=== PATIENT | female | born 1970 | race Caucasian/White ===

== ENCOUNTER 2016-12-02 11:47 | Observation (INO) ==
--- NOTE | 2016-12-02 12:11 | Emergency Department Note ---
Disposition Clinical Impression: Exertional dyspnea Disposition: Admitted As Inpatient Condition: Fair Referrals: NONE,PCP [Primary Care Provider] - Forms: ED Satisfaction Letter Time of Disposition: 14:55 SOB HPI - General Chief Complaint: ED Shortness of Breath/Dyspnea Stated Complaint: SOB/Swelling Time Seen by Provider: 12/02/16 11:56 Source: patient Limitations: no limitations Nursing Notes Reviewed: Yes Vital Signs Reviewed: Yes - History of Present Illness Patient is a 46-year-old female who presents to [facility] ED with a chief complaint of shortness of breath and swelling. States she has been feeling more and more short of breath over this last week. It is worse with exertion. Patient also having worsening swelling. States she has had about a 15 pound weight gain in the last week. No prior heart attacks or congestive heart failure. States she did have a heart catheterization approximately 5 years ago which showed a 40% blockage in one vessel. Her last echocardiogram was also over 5 years ago. Patient denies any nausea, vomiting, chest pain, abdominal pain, problems with urination or bowel movements. Pt Subjective Complaint: shortness of breath Onset (ago): day(s) Context: occurred during exertion Severity: moderate Consistency/Duration: gradually worsening Improves with: rest Worsens with: exertion Associated symptoms: Denies: chest pain, fever, cough, orthopnea, nausea/ vomiting, abdominal pain Treatment prior to arrival: none Cough present: No Sputum Amount: None - Related Data Home oxygen amount: none Home Medications Medication Instructions Recorded Confirmed Amlodipine Besylate [Amlodipine 10 mg PO DAILY 12/02/16 12/02/16 Besylate] Aspirin 81 mg PO DAILY 12/02/16 12/02/16 Escitalopram [Lexapro] 5 mg PO DAILY 12/02/16 12/02/16 Losartan/Hydrochlorothiazide 1 tab PO DAILY 12/02/16 12/02/16 [Losartan-Hctz 100-25 mg Tab] Metoprolol [Lopressor] 25 mg PO BID 12/02/16 12/02/16 Multivitamin [One Daily Essential] 1 tab PO DAILY 12/02/16 12/02/16 Rosuvastatin Calcium [Crestor] 10 mg PO DAILY 12/02/16 12/02/16 Allergies Allergy/AdvReac Type Severity Reaction Status Date / Time No Known Allergies Allergy Verified 12/02/16 11:52 All systems ED: reviewed and negative except as stated. Past Medical History - Past Medical History Attestation: Yes The following information was validated with the patient. Source: patient Medical history: Reports: hypertension, other Psychiatric history: Reports: no psych history - Social History Smoking Status: Current some day smoker Smokeless Tobacco Status: No Alcohol use: Reports: none Drug use: Reports: none Physical Exam - General Limitations: no limitations General appearance: alert, in no apparent distress - Head Head exam: atraumatic, normocephalic, normal inspection - Eye Eye exam: Present: normal appearance, EOMI - ENT ENT exam: normal exam, normal oropharynx, mucous membranes moist - Neck Neck exam: Present: normal inspection, full ROM, trachea midline - Chest Chest inspection: Present: normal inspection, symmetric chest wall rise - Respiratory Respiratory exam: Present: normal lung sounds bilaterally - Cardiovascular Cardiovascular exam: Present: normal rhythm, tachycardia - Abdominal Exam Abdominal exam: Present: soft, Non-Tender. Absent: tenderness, distention, guarding, rebound, rigidity - Extremities Exam Extremities exam: Present: normal inspection, full ROM. Absent: tenderness, pedal edema - Back Exam Back exam: Present: normal inspection, full ROM. Absent: tenderness - Neurological Exam Neurological exam: Present: alert, oriented X3 - Psychiatric Psychiatric exam: Present: normal affect, normal mood - Skin Skin exam: Present: warm, dry, intact, normal color Course Course Narrative: Patient seen and examined. Exertional dyspnea and lower extremity dependent edema. We will do a cardiopulmonary workup as well as dimer level. She is tachycardic though she does have history of positional orthostatic tachycardia. - Reevaluation(s) Reevaluation #1: Dimer level was positive at over 5000. We did a CTA of the chest to rule out pulmonary embolus. This was negative. I discussed results with patient. She states her physician works approximately 3 hours away. With her worsening symptoms, we will go ahead and get her admitted with concern that she needs an echocardiogram. We will give a dose of 40 mg IV Lasix. Discussed with hospitalist Wicho Rivera who has accepted patient for admission. Time: 15:23 Vital Signs Temperature 97.8 F 12/02/16 11:48 Pulse Rate 129 12/02/16 11:48 Respiratory Rate 18 12/02/16 11:48 Blood Pressure 162/92 12/02/16 11:48 O2 Sat by Pulse Oximetry 98 10/28/17 11:48 Temperature 97.8 F 12/02/16 11:48 Pulse Rate 101 12/02/16 15:01 Respiratory Rate 16 12/02/16 14:27 Blood Pressure 135/83 12/02/16 15:01 O2 Sat by Pulse Oximetry 95 12/02/16 15:01 Oxygen Delivery Oxygen Delivery Room Air Shortness of Breath/Dyspnea - Medical Records Medical records reviewed: Yes I reviewed the patient's medical records. - Lab Data Lab results reviewed: Yes I reviewed the patient's lab results. Result diagrams: 12/02/16 12:08 12/02/16 12:08 Lab Results 12/02/16 12/02/16 12/02/16 Range/Units 12:08 12:08 12:08 WBC 9.0 (4.3-11.1) K/mcL RBC 4.69 (3.82-4.97) M/mcL Hgb 15.1 (11.5-15.4) g/dL Hct 42.2 (35.3-44.9) % MCV 90.0 (83.0-100.0) fL MCH 32.2 (28.0-33.3) pg MCHC 35.8 H (31.6-35.5) g/dL RDW 12.9 (11.5-14.5) % Plt Count 189 (140-400) K/mcL MPV 11.1 (9.4-12.4) fL Immature Gran % 0.2 (0-4) % Seg Neutrophils % 54.7 % Lymphocytes % 35.1 % Monocytes % 7.6 % Eosinophils % 1.8 % Basophils % 0.6 % Neutrophils # 4.9 (1.6-8.9) K/mcL Lymphocytes # 3.2 (0.6-4.6) K/mcL Monocytes # 0.7 (0.0-1.3) K/mcL Eosinophils # 0.2 (0.0-0.6) K/mcL Basophils # 0.1 (0.0-0.2) K/mcL D-Dimer 5816 H (0-500) ng/mLFEU Sodium 140 (136-145) mEq/L Potassium 3.5 (3.5-4.5) mEq/L Chloride 103 (98-109) mEq/L Carbon Dioxide 26 (19-29) mEq/L BUN 13 (7-20) mg/dL Creatinine 0.69 (0.57-1.11) mg/dL Est GFR ( Amer) > 60 (> 60) Est GFR (Non-Af Amer) > 60 (> 60) BUN/Creatinine Ratio 19 (6-26) Glucose 110 H (70-99) mg/dL Calculated Osmolality 291 (280-300) Calcium 9.5 (8.6-10.8) mg/dL Troponin I (0-0.03) ng/mL B-Natriuretic Peptide (0-100) pg/mL 12/02/16 12/02/16 Range/Units 12:08 12:08 WBC (4.3-11.1) K/mcL RBC (3.82-4.97) M/mcL Hgb (11.5-15.4) g/dL Hct (35.3-44.9) % MCV (83.0-100.0) fL MCH (28.0-33.3) pg MCHC (31.6-35.5) g/dL RDW (11.5-14.5) % Plt Count (140-400) K/mcL MPV (9.4-12.4) fL Immature Gran % (0-4) % Seg Neutrophils % % Lymphocytes % % Monocytes % % Eosinophils % % Basophils % % Neutrophils # (1.6-8.9) K/mcL Lymphocytes # (0.6-4.6) K/mcL Monocytes # (0.0-1.3) K/mcL Eosinophils # (0.0-0.6) K/mcL Basophils # (0.0-0.2) K/mcL D-Dimer (0-500) ng/mLFEU Sodium (136-145) mEq/L Potassium (3.5-4.5) mEq/L Chloride (98-109) mEq/L Carbon Dioxide (19-29) mEq/L BUN (7-20) mg/dL Creatinine (0.57-1.11) mg/dL Est GFR ( Amer) (> 60) Est GFR (Non-Af Amer) (> 60) BUN/Creatinine Ratio (6-26) Glucose (70-99) mg/dL Calculated Osmolality (280-300) Calcium (8.6-10.8) mg/dL Troponin I 0.00 (0-0.03) ng/mL B-Natriuretic Peptide < 10 (0-100) pg/mL - Radiology Data Radiology results reviewed: Yes I reviewed the patient's radiology results. Chest X-Ray 12/02/16 12:16 IMPRESSION: Mild interstitial prominence which may reflect mild edema. Otherwise no acute cardiopulmonary findings. D/ / Karlie Barnes MD / Karlie Barnes MD Interpreting Provider: Karlie Barnes MD Chest CTA 12/02/16 12:41 IMPRESSION: No evidence of pulmonary embolism or acute pulmonary abnormality. D/ / Monty Tee MD / Monty Tee MD Interpreting Provider: Monty Tee MD - EKG Data EKG attestation: Yes I reviewed and interpreted this EKG. EKG results narrative: EKG done at 1214 shows normal sinus rhythm with a rate of [address] elevation or depression. Normal axis. Critical Care Time Critical Care Time: Yes Total Critical Care Time: 35 Attestation: Care time 35 minutes. Attestation Statement - Attestation Attestation: Patient was seen with resident physician. I reviewed the history, physical, assessment and plan, and agree with the findings. I also personally evaluated this patient and had [id number] time with this patient. Voice x-ray female presents to the emergency department with worsening shortness of breath. Patient states the last week or 2 she has noticed dependent edema when she walks around in the lower extremities and also noticed that she has had increased shortness of breath with exertional dyspnea. Denies fevers chills nausea vomiting or diarrhea. She does have some positional chest discomfort. No chest pressure or pain otherwise. On exam vital signs stable. ENT is unremarkable. Heart lungs normal. Abdomen is soft and nontender. Extremities are normal with no swelling. ED course checks x-ray showed some mild congestion. Labs showed elevated d-dimer and negative troponin. CT scan of the chest showed no PE. Patient was able to ambulate without the satting in the emergency department. Patient ultimately needs an echocardiogram. We discussed best way to approach this with the patient who preferred to be admitted to the hospital for additional evaluation and treatment. States she was not feeling particularly well. We did order IV Lasix to try and help the pulmonary congestion. Unclear what could have caused this at the time of admission. We did speak with the hospitalist service to arrange for hospitalization. Agree with the resident physician assessment and plan.
[2016-12-02 12:22] LABS: Basophils # 0.1 K/mcL (0.0-0.2); Basophils % 0.6 %; Eosinophils # 0.2 K/mcL (0.0-0.6); Eosinophils % 1.8 %; Hematocrit 42.2 % (35.3-44.9); Hemoglobin 15.1 g/dL (11.5-15.4); Immature Granulocytes % 0.2 % (0-4); Lymphocytes # 3.2 K/mcL (0.6-4.6); Lymphocytes % 35.1 %; Mean Corpuscular HGB Conc 35.8 g/dL (31.6-35.5); Mean Corpuscular Hemoglobin 32.2 pg (28.0-33.3); Mean Platelet Volume 11.1 fL (9.4-12.4); Monocytes # 0.7 K/mcL (0.0-1.3); Monocytes % 7.6 %; Neutrophils # 4.9 K/mcL (1.6-8.9); Platelet Count 189 K/mcL (140-400); Red Blood Count 4.69 M/mcL (3.82-4.97); Red Cell Distribution Width 12.9 % (11.5-14.5); Segmented Neutrophils % 54.7 %
[2016-12-02 12:35] LABS: BUN/Creatinine Ratio 19 (6-26); Blood Urea Nitrogen 13 mg/dL (7-20); Calcium 9.5 mg/dL (8.6-10.8); Carbon Dioxide 26 mEq/L (19-29); Chloride 103 mEq/L (98-109); Glucose 110 mg/dL (70-99); Osmolality,Calculated 291 (280-300); Potassium 3.5 mEq/L (3.5-4.5); Sodium 140 mEq/L (136-145); eGFR For African Americans > 60 (> 60); eGFR For Non-African Americans > 60 (> 60)
[2016-12-02] MEDS ORDERED: Furosemide 40 MG/4 ML VIAL IVP ONE (14:44)
[2016-12-02] MEDS ORDERED: Acetaminophen 325 MG TABLET PO PRN (16:11)
[2016-12-02] MEDS ORDERED: Naloxone 0.4 MG/ML INJ IVP PRN (16:11)
[2016-12-02] MEDS ORDERED: 0.9 % Sodium Chloride 1,000 ML IVC SCH (16:15)
--- NOTE | 2016-12-02 16:22 | Internal Med History&Physical ---
Date of Encounter: 12/03/16 Time of Encounter: 16:20 Assessment and Plan (1) Chest pain Current visit: Yes Status: Acute 46/female Left-sided precordial chest pain. Nonradiating and localized. Relieved by rest. Likely atypical chest pain. Previous history of cardiac catheterization: On 5 years back and she was told that 40% blockage. Plan: -Admitted as an observation. -CBC/CMP/lipid panel/UA -Echocardiogram. -Nothing by mouth after midnight including medications. -If echocardiogram is normal and if troponins are negative then we will get a stress test tomorrow. Plan discussed with the patient and patient's family member I examined this patient in the emergency room #11 at around 3:50 PM Qualifiers: Chest pain type: unspecified Qualified Code(s): R07.9 - Chest pain, unspecified (2) Exertional dyspnea Current visit: Yes Status: Acute Worsening dyspnea CTA in the emergency room: Negative for any pulmonary embolism. Patient had a worsening dyspnea associated with leg swelling since last 1 week. Lasix given in the emergency room. Plan: We will get CBC/CMP Echocardiogram. Strict intake output. UA to rule out proteinuria. Close observation. (3) POTS (postural orthostatic tachycardia syndrome) Current visit: Yes Status: Acute Patient is presently on 3 antihypertensive medication this may be the reason for her tachycardia/orthostatic hypotension. We will monitor her closely and will get records from the previous hospital. (4) DVT prophylaxis Current visit: Yes Status: Acute SCD Decision-making: This patient has a moderate to severe risk of worsening in spite of being on appropriate medication due to the underlying comorbid conditions. Internal Medicine - H&P: HPI Chief complaint: Chest pain/shortness of breath Admitted From: Emergency Dept Plans for Post Hospital Care: Home History of present illness: PCP: None Brief medical history: Pots syndrome, hypertension. History of present illness: Patient lives in the [place] area and she was visiting her mother at [place]. At mother's house patient noted that she has worsening shortness of breath which is ongoing symptom for more than one week. Patient's niece is a RN and she was really concerned about this worsening shortness of breath and she recommended to go to emergency room and get further evaluation done. Patient also complains of left-sided precordial chest discomfort. This chest discomfort is new onset started less than 48 hours ago, nonradiating, localized, achy in nature and gets relieved by the rest. Patient noted that she has a persistent ongoing shortness of breath which is worse than in past 1 week. Patient also noted that she has a weight gain more than 10 pounds in last 1 week. Patient realized that she has a bilateral swelling of her lower leg in last 1 week. Patient denies chest pain, vomiting, nausea, abdominal pain, diarrhea or dizziness. Workup in the emergency room: Patient was evaluated in the emergency room. Baseline labs were drawn. Noted that patient has a elevated d-dimer. CT was performed which was negative for any acute pulmonary embolism. She was given Lasix. Reason for admission: Chest pain to rule out ACS, worsening shortness of breath for further evaluation. Family history: Noncontributory Past Med Surg Social Fam HX - Past Medical History Medical history: hypertension, other Psychiatric history: no psych history - Social History Smoking Status: Current some day smoker Smokeless Tobacco Status: No Alcohol use: none Drug use: none Internal Medicine - H&P: Meds Amlodipine Besylate [Amlodipine Besylate] 10 mg PO DAILY 12/02/16 [History] Aspirin 81 mg PO DAILY 12/02/16 [History] Escitalopram [Lexapro] 5 mg PO DAILY 12/02/16 [History] Losartan/Hydrochlorothiazide [Losartan-Hctz 100-25 mg Tab] 1 tab PO DAILY [History] Metoprolol [Lopressor] 25 mg PO BID 12/02/16 [History] Multivitamin [One Daily Essential] 1 tab PO DAILY 12/02/16 [History] Rosuvastatin Calcium [Crestor] 10 mg PO DAILY 12/02/16 [History] 3 Allergy/AdvReac Type Severity Reaction Status Date / Time No Known Allergies Allergy Verified 12/02/16 11:52 All Systems PM: A 10-system review of systems was performed and is negative for pertinent findings except as documented above in the HPI. - Constitutional Constitutional: no chills, no fever(s), no night sweats - EENT Eyes: no change in vision, no discharge, no pain, no photophobia Ears: no ear discharge, no ear pain, no tinnitus Nose, mouth and throat: no dysphagia, no nasal discharge, no neck pain, no sore throat - Cardiovascular Cardiovascular ROS IM: chest pain, no diaphoresis, no dyspnea, no lightheadedness, no palpitations, no syncope - Respiratory Respiratory: dyspnea, dyspnea on exertion, no cough, no wheezing, no excessive phlegm production - Gastrointestinal Gastrointestinal: no abdominal pain, no diarrhea, no hematemesis, no hematochezia, no melena, no nausea, no vomiting - Genitourinary Genitourinary: no change in urinary stream, no dysuria, no flank pain, no hematuria - Musculoskeletal Musculoskeletal ROS IM: no numbness, no tingling - Integumentary Integumentary IM: no rash, no unusual bruising - Neurological Neurological ROS: no confusion, no convulsions, no focal weakness, no numbness, no tingling, no tremor(s) - Hematologic/Lymphatic Hematologic/Lymphatic: no easy bruising - Constitutional Vitals: Temp Pulse Resp BP Pulse Ox 97.8 F 101 16 135/83 95 12/02/16 11:48 12/02/16 15:01 12/02/16 14:27 12/02/16 15:01 12/02/16 15:01 General appearance: Present: A&O X 3, pleasant, no acute distress, answers questions appropriately - Head Head exam: Present: atraumatic, normocephalic - Eye Eye exam: Present: PERRL, conjuntiva pink, sclera anicteric Pupils: Present: PERRL - Neck Neck exam general surgery: Present: supple, trachea midline. Absent: lymphadenopathy - Respiratory Respiratory exam: Present: CTAB. Absent: accessory muscle use, rales, rhonchi, wheezes - Cardiovascular Cardiovascular exam: Present: RRR, +S1, +S2. Absent: diastolic murmur, gallop, rubs, systolic murmur - GI/Abdominal GI/Abdominal exam: Present: normal bowel sounds, soft, no peritoneal signs. Absent: distended, tenderness - Extremities Exam Extremities exam: Present: warm, radial pulses palpable and symmetrical. Absent : calf tenderness, cyanotic, pedal edema - Neurological Exam Neurological exam: Present: CN II-XII intact, oriented X3, no focal deficits. Absent: pronater drift, facial droop, speech deficit - Skin Skin exam: Present: dry, intact Internal Med - H&P Results - Labs CBC & Chem 7: 12/03/16 04:19 12/03/16 04:19 Labs: Labs discussed with the emergency room physician.
[2016-12-02] MEDS: Famotidine 20 MG TABLET PO SCH (22:07)
[2016-12-03 04:36] LABS: Basophils % 0.5 %; Eosinophils # 0.2 K/mcL (0.0-0.6); Eosinophils % 2.5 %; Hematocrit 40.9 % (35.3-44.9); Hemoglobin 14.2 g/dL (11.5-15.4); Immature Granulocytes % 0.3 % (0-4); Lymphocytes # 3.1 K/mcL (0.6-4.6); Lymphocytes % 38.9 %; Mean Corpuscular HGB Conc 34.7 g/dL (31.6-35.5); Mean Corpuscular Hemoglobin 31.2 pg (28.0-33.3); Mean Corpuscular Volume 89.9 fL (83.0-100.0); Mean Platelet Volume 10.8 fL (9.4-12.4); Monocytes # 0.7 K/mcL (0.0-1.3); Monocytes % 8.5 %; Neutrophils # 3.9 K/mcL (1.6-8.9); Platelet Count 172 K/mcL (140-400); Red Blood Count 4.55 M/mcL (3.82-4.97); Segmented Neutrophils % 49.3 %
[2016-12-03 04:43] LABS: Alanine Aminotransferase 41 Units/L (0-55); Albumin 3.7 g/dL (3.5-5.0); Albumin/Globulin Ratio 1.2 (1.1-2.2); Alkaline Phosphatase 48 Units/L (38-126); Aspartate Amino Transferase 25 Units/L (5-34); BUN/Creatinine Ratio 20 (6-26); Bilirubin,Total 0.3 mg/dL (0.2-1.2); Blood Urea Nitrogen 12 mg/dL (7-20); Calcium 8.7 mg/dL (8.6-10.8); Carbon Dioxide 24 mEq/L (19-29); Chloride 105 mEq/L (98-109); Chol/HDL Ratio 4.3 (0-4.9); Cholesterol 212 mg/dL (< 200); Globulin 3.1 g/dL (2.4-3.5); Glucose 99 mg/dL (70-99); HDL Cholesterol 49 mg/dL (40-59); LDL Cholesterol,Calculated 135 mg/dL (0-99); Magnesium 2.1 mg/dL (1.6-2.6); Osmolality,Calculated 290 (280-300); Phosphorous 3.7 mg/dL (2.3-4.7); Potassium 3.5 mEq/L (3.5-4.5); Sodium 140 mEq/L (136-145); Total Protein 6.8 g/dL (6.0-8.3); Triglycerides 140 mg/dL (< 150); eGFR For African Americans > 60 (> 60); eGFR For Non-African Americans > 60 (> 60)
[2016-12-03 05:06] LABS: Bilirubin,Urine Negative (Negative); Blood,Urine Negative (Negative); Clarity,Urine Clear (Clear); Color,Urine Yellow (Yellow); Glucose,Urine (UA) Normal (Normal); Ketones,Urine Negative (Negative); Leukocyte Esterase,Urine Negative (Negative); Nitrite,Urine Negative (Negative); Protein,Urine Negative (Neg-Trace); Specific Gravity,Urine 1.022 (1.010-1.025); Urobilinogen,Urine Normal (Normal)
[2016-12-03] MEDS: amLODIPine 5 MG TABLET PO SCH (08:57)
[2016-12-03] MEDS: Famotidine 20 MG TABLET PO SCH ×2 (08:58→19:47)
[2016-12-03] MEDS: Aspirin 81 MG TAB.CHEW PO SCH (08:58)
[2016-12-03] MEDS: Losartan/HCTZ 50-12.5 TABLET PO SCH (08:58)
--- NOTE | 2016-12-03 09:19 | Internal Med Progress Note ---
Date of Encounter: 12/03/16 Time of Encounter: 09:15 - Assessment and plan (1) Chest pain Current Visit: Yes Status: Acute Assessment and plan: Patient has a left precordial chest pain upon arrival to the emergency room. Overnight 3 troponins are negative. EKG is within normal limits. Fasting blood sugar 99. LDL: 135, patient on Crestor 10 mg every day. Plan: We will get echocardiogram today. We will get venous Doppler of lower extremity in view of the high d-dimer. If echocardiogram is within normal limits then we will consider for stress test tomorrow. Qualifiers: Chest pain type: unspecified Qualified Code(s): R07.9 - Chest pain, unspecified (2) Exertional dyspnea Current Visit: Yes Status: Acute Assessment and plan: Noted that patient's CTA chest was negative for any acute pulmonary embolism Renal function/liver function is within normal limits. Plan as discussed above. (3) POTS (postural orthostatic tachycardia syndrome) Current Visit: Yes Status: Acute Assessment and plan: Presently stable (4) DVT prophylaxis Current Visit: Yes Status: Acute Assessment and plan: SCD Rectal decision making: This patient has a moderate to severe risk of worsening in spite of being on appropriate medication to the underlying complex comorbid condition - Subjective Interval history: Patient seen and examined. Chart reviewed. Patient is comfortably lying in bed. Next line patient's sister at bedside. Patient claims that she had a good sleep in the night. Patient denies chest pain, shortness of breath, nausea, vomiting, dizziness and diarrhea. - Constitutional Vitals: Temp Pulse Resp BP Pulse Ox 97.8 F 75 16 109/72 97 12/03/16 07:31 12/03/16 07:31 12/03/16 07:31 12/03/16 07:31 12/03/16 09:03 General appearance: Present: A&O X 3, pleasant, no acute distress, answers questions appropriately - Head Head exam: Present: atraumatic, normocephalic - Eye Eye exam: Present: PERRL, conjuntiva pink, sclera anicteric Pupils: Present: PERRL - Neck Neck exam general surgery: Present: supple, trachea midline. Absent: lymphadenopathy - Respiratory Respiratory exam: Present: CTAB. Absent: accessory muscle use, rales, rhonchi, wheezes - Cardiovascular Cardiovascular exam: Present: RRR, +S1, +S2. Absent: diastolic murmur, gallop, rubs, systolic murmur - GI/Abdominal GI/Abdominal exam: Present: normal bowel sounds, soft, no peritoneal signs. Absent: distended, tenderness - Extremities Exam Extremities exam: Present: warm, radial pulses palpable and symmetrical. Absent : calf tenderness, cyanotic, pedal edema - Neurological Exam Neurological exam: Present: CN II-XII intact, oriented X3, no focal deficits. Absent: pronater drift, facial droop, speech deficit - Skin Skin exam: Present: dry, intact Internal Medicine: Result - Labs CBC & Chem 7: 12/03/16 04:19 12/03/16 04:19 Labs: Short CBC 12/03/16 Range/Units 04:19 WBC 7.9 (4.3-11.1) K/mcL Hgb 14.2 (11.5-15.4) g/dL Hct 40.9 (35.3-44.9) % Plt Count 172 (140-400) K/mcL Neutrophils # 3.9 (1.6-8.9) K/mcL BMP 12/03/16 04:19 Sodium 140 Potassium 3.5 Chloride 105 Carbon Dioxide 24 BUN 12 Creatinine 0.60 Glucose 99 Calcium 8.7 Cardiac Enzymes 12/02/16 12/02/16 12/03/16 Range/Units 16:39 22:28 04:19 Troponin I 0.00 0.00 0.00 (0-0.03) ng/mL Liver Function 12/03/16 Range/Units 04:19 Total Bilirubin 0.3 (0.2-1.2) mg/dL AST 25 (5-34) Units/L ALT 41 (0-55) Units/L Alkaline Phosphatase 48 (38-126) Units/L Albumin 3.7 (3.5-5.0) g/dL Urine 12/03/16 Range/Units 04:55 Urine Color Yellow (Yellow) Urine Clarity Clear (Clear) Urine pH 6.0 (5.0-8.0) pH Units Ur Specific [place] 1.022 (1.010-1.025) Urine Protein Negative (Neg-Trace) mg/dL Urine Glucose (UA) Normal (Normal) mg/dL - ABG Interpretation ABG results: PT/INR, D-dimer D-Dimer 5816 ng/mLFEU (0-500) H 12/02/16 12:08 Consult Discharge Plan - Plan Referrals: NONE,PCP [Primary Care Provider] -
[2016-12-04 03:49] LABS: Basophils % 0.4 %; Eosinophils # 0.2 K/mcL (0.0-0.6); Eosinophils % 2.7 %; Hematocrit 40.6 % (35.3-44.9); Hemoglobin 14.1 g/dL (11.5-15.4); Immature Granulocytes % 0.1 % (0-4); Immature Platelets 8.3 % (1.1-6.1); Lymphocytes # 3.5 K/mcL (0.6-4.6); Lymphocytes % 39.3 %; Mean Corpuscular HGB Conc 34.7 g/dL (31.6-35.5); Mean Corpuscular Hemoglobin 31.7 pg (28.0-33.3); Mean Corpuscular Volume 91.2 fL (83.0-100.0); Mean Platelet Volume 11.2 fL (9.4-12.4); Monocytes # 0.7 K/mcL (0.0-1.3); Monocytes % 8.1 %; Neutrophils # 4.4 K/mcL (1.6-8.9); Platelet Count 177 K/mcL (140-400); Red Blood Count 4.45 M/mcL (3.82-4.97); Segmented Neutrophils % 49.4 %
[2016-12-04 04:03] LABS: Alanine Aminotransferase 37 Units/L (0-55); Albumin 3.5 g/dL (3.5-5.0); Albumin/Globulin Ratio 1.1 (1.1-2.2); Alkaline Phosphatase 49 Units/L (38-126); Aspartate Amino Transferase 22 Units/L (5-34); BUN/Creatinine Ratio 27 (6-26); Bilirubin,Total 0.3 mg/dL (0.2-1.2); Blood Urea Nitrogen 16 mg/dL (7-20); Calcium 8.7 mg/dL (8.6-10.8); Carbon Dioxide 25 mEq/L (19-29); Chloride 105 mEq/L (98-109); Globulin 3.1 g/dL (2.4-3.5); Glucose 101 mg/dL (70-99); Osmolality,Calculated 293 (280-300); Potassium 3.2 mEq/L (3.5-4.5); Sodium 141 mEq/L (136-145); Total Protein 6.6 g/dL (6.0-8.3); eGFR For African Americans > 60 (> 60); eGFR For Non-African Americans > 60 (> 60)
[2016-12-04] MEDS ORDERED: Regadenoson 0.4 MG/5 ML SYRINGE IVP ONE (07:55)
[2016-12-04] MEDS: amLODIPine 5 MG TABLET PO SCH (10:26)
[2016-12-04] MEDS: Losartan/HCTZ 50-12.5 TABLET PO SCH (10:26)
[2016-12-04] MEDS: Aspirin 81 MG TAB.CHEW PO SCH (10:27)
[2016-12-04] MEDS: Famotidine 20 MG TABLET PO SCH (10:27)
[2016-12-04 10:30] VITALS: BP 130/87
--- NOTE | 2016-12-04 14:00 | Discharge Summary ---
Date of Encounter: 12/04/16 Time of Encounter: 13:57 - Discharge Diagnosis (1) Chest pain Priority: Primary Status: Acute Qualifiers: Chest pain type: unspecified Qualified Code(s): R07.9 - Chest pain, unspecified (2) Exertional dyspnea Priority: Secondary Status: Acute (3) POTS (postural orthostatic tachycardia syndrome) Priority: Secondary Status: Acute (4) DVT prophylaxis Priority: Secondary Status: Acute - Discharge Medications Home Medications: Amlodipine Besylate 10 mg PO DAILY 12/02/16 [History] Aspirin 81 mg PO DAILY 12/02/16 [History] Escitalopram [Lexapro] 5 mg PO DAILY 12/02/16 [History] Losartan/Hydrochlorothiazide [Losartan-Hctz 100-25 mg Tab] 1 tab PO DAILY [History] Metoprolol [Lopressor] 25 mg PO BID 12/02/16 [History] Multivitamin [One Daily Essential] 1 tab PO DAILY 12/02/16 [History] Rosuvastatin Calcium [Crestor] 10 mg PO DAILY 12/02/16 [History] Allergies/Adverse Reactions: 3 Allergy/AdvReac Type Severity Reaction Status Date / Time No Known Allergies Allergy Verified 12/02/16 11:52 Procedures/tests Complete & Pending: Procedures Performed prior 72 hours Category Date Time Status NM dima perf SPECT multi [NM] Routine Exams 12/04/16 07:42 Taken EV venous imaging LE BI Stat Y 12/03/16 07:00 Completed SP pharm nuclear stress Routine Y 12/04/16 07:41 Completed Date of admission: 12/02/16 15:27 Primary care physician: PCP NONE Consults: 12/02/16 16:14 Consult to Occupational Therapy [CONS] Routine Comment: Evaluate, develop and implement POC Reason for Consult: POTS syndrome Consult to Physical Therapy [CONS] Routine Comment: Evaluate, develop and implement POC Reason for Consult: POTS syndrome Discharging clinician: Eduar Leal - Patient Status Disposition: Home, Self-Care Condition: Fair Functional capacity at discharge: independent ambulation Overall status at discharge: patient is progressing back to baseline - Discharge Instructions Follow Up With: NONE,PCP [Primary Care Provider] - Izaiah Allison DO [Partnered Physician] - Reva Hanna MD [Partnered Physician] - - Diet and Activity Activity: increase activity as tolerated Diet: low fat, low cholesterol, low salt diet Interval History: Brief medical history: Pots syndrome, hypertension. History of present illness: Patient lives in the [place] area and she was visiting her mother at [place]. At mother's house patient noted that she has worsening shortness of breath which is ongoing symptom for more than one week. Patient's niece is a RN and she was really concerned about this worsening shortness of breath and she recommended to go to emergency room and get further evaluation done. Patient also complains of left-sided precordial chest discomfort. This chest discomfort is new onset started less than 48 hours ago, nonradiating, localized, achy in nature and gets relieved by the rest. Patient noted that she has a persistent ongoing shortness of breath which is worse than in past 1 week. Patient also noted that she has a weight gain more than 10 pounds in last 1 week. Patient realized that she has a bilateral swelling of her lower leg in last 1 week. Patient denies chest pain, vomiting, nausea, abdominal pain, diarrhea or dizziness. Workup in the emergency room: Patient was evaluated in the emergency room. Baseline labs were drawn. Noted that patient has a elevated d-dimer. CT was performed which was negative for any acute pulmonary embolism. She was given Lasix. Reason for admission: Chest pain to rule out ACS, worsening shortness of breath for further evaluation. Hospital course: Patient was hospitalized. Troponins 3 were negative. Echocardiogram: Ejection fraction 65%, mild left ventricular diastolic dysfunction, RVSP is 32. Nuclear stress test: Gaited EF more than 70%, perfusion imaging was negative for ischemia/infarct. Pharmacologic EKG was nondiagnostic for ischemia. LDL: 135, total cholesterol: 212 Recommended patient to increase her Crestor dose. Patient prefers to do that with the consent of PCP. Patient's renal function/liver function is within normal limits. Plan: Patient is going home today. Patient will have an appointment with the cardiology for POTS syndrome and possibly management of her LDL. Patient will have an appointment with the pulmonology as she has elevated RSVP Patient's niece is a RN and she used to work in this hospital before. patient's sister prefers that patient should come here for all the appointments. At the time of discharge patient does not have any questions, concerns, updated , recommendations - Time Spent with Patient Total time spent providing and/or coordinating discharge services: - Constitutional Vitals: Temp Pulse Resp BP Pulse Ox 97.9 F 85 16 130/87 97 12/04/16 10:30 12/04/16 10:30 12/04/16 10:30 12/04/16 10:30 12/04/16 10:33 General appearance: Present: A&O X 3, pleasant, no acute distress, answers questions appropriately - Head Head exam: Present: atraumatic, normocephalic - Eye Eye exam: Present: PERRL, conjuntiva pink, sclera anicteric Pupils: Present: PERRL - Neck Neck exam general surgery: Present: supple, trachea midline. Absent: lymphadenopathy - Respiratory Respiratory exam: Present: CTAB. Absent: accessory muscle use, rales, rhonchi, wheezes - Cardiovascular Cardiovascular exam: Present: RRR, +S1, +S2. Absent: diastolic murmur, gallop, rubs, systolic murmur - GI/Abdominal GI/Abdominal exam: Present: normal bowel sounds, soft, no peritoneal signs. Absent: distended, tenderness - Extremities Exam Extremities exam: Present: warm, radial pulses palpable and symmetrical. Absent : calf tenderness, cyanotic, pedal edema - Neurological Exam Neurological exam: Present: CN II-XII intact, oriented X3, no focal deficits. Absent: pronater drift, facial droop, speech deficit - Skin Skin exam: Present: dry, intact - VTE Documentation of Mechanical Device: Intermittent pneumatic compression device
[2016-12-04] MEDS ORDERED: FLUARIX QUAD 2017-18 36MOS UP/PF 0.5 ML SYRINGE IM ONE (14:11)
--- NOTE | 2016-12-04 16:59 | Electrocardiograph Report ---
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
== END 2016-12-04 14:33 | disposition home or self-care (01) ==
LOC: EMEROO 11:47 → 2ANU 11:47
PROVIDERS: ADMIT Internal Medicine; ATTEND Hospitalist